=== PATIENT | female | born 1960 | race Caucasian/White ===

== ENCOUNTER 2018-11-18 08:26 | Outpatient (CLI) | payer OTHER ==
[2018-11-18] MEDS ORDERED: Iopamidol 370 76% 100 ML VIAL ONE (09:00)
--- NOTE | 2018-11-18 09:43 | CT ---
CT ABDOMEN AND PELVIS WITH AND WITHOUT IV CONTRAST: HISTORY: Microscopic hematuria. FINDINGS: Each renal collecting system, ureter, and the urinary bladder are decompressed. At th inferior pole of the right kidney, at an area of scarring, a 0.3 cm calculus is present within a nondilated calyx. No stones are apparent on the left. There is focal cortical thinning and retraction at the posterio r aspect of the inferior pole right kidney. 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 No filling defects are apparent within the urinary system on the delayed images. Tiny cysts associat ed with the cortex of each kidney. Calcification of the arterial structures with mild fusiform ectas ia of the lower abdominal aorta up to 2.0 cm distally. Degenerative changes of the lumbar spine. IMPRESSION: 1. Nonobstructing 3 mm right inferior pole renal calculus. 2. Prominent parenchymal scarring at the inferior pole of the right kidney. 3. Tiny bilateral renal cysts. 4. Atherosclerosis. POS: [facility]
== END 2018-11-18 08:27 | disposition home or self-care (01) ==
LOC: SCSCT 08:26
PROVIDERS: ATTEND Urology
DX: R31.29 Other microscopic hematuria (principal); N20.0 Calculus of kidney; N28.1 Cyst of kidney, acquired; I70.0 Atherosclerosis of aorta; N28.89 Other specified disorders of kidney and ureter
CPT/HCPCS: 74178

== ENCOUNTER 2019-03-10 08:41 | Outpatient (CLI) | payer OTHER ==
--- NOTE | 2019-03-10 09:30 | BD ---
DEXA BONE DENSITOMETRY: (Dual energy x-ray absorptiometry) DATE: 03/10/2019 HISTORY: 58-year old white female for age-related, post-menopausal, osteoporosis screening. weight: 125 lbs height: 63 in. Age of menopause: 48 COMPARISON: None available. FINDINGS: The bone mineral density (BMD) is given in grams per square centimeter (g/cm2): LUMBAR SPINE: BMD (g/cm^2) T score Z score L1: 0.726 -2.4 -1.1 L2: 0.824 -1.9 -0.4 L3: 0.850 -2.1 -0.7 L4: 0.907 -1.4 0.1 Total: 0.837 -1.9 -0.5 HIP: BMD (g/cm^2) T score Z score Femoral neck: 0.598 -2.3 -1.0 Total: 0.864 -0.6 0.3 FRAX WHO fracture risk assessment tool: 10 year fracture risk* Major osteoporotic fracture: 10 % Hip fracture: 2.7 % Reported risk factors: [place] (), neck BMD = 0.598 (g/cm^2), BMI = 22.1, and Smoking. *Fracture probability is calculated for an untreated patient. Fracture probability may be lower if th e patient has received treatment. IMPRESSION: 1.) The mean bone mineral density of the lumbar spine is osteopenic. Fracture risk is increased. 2) The bone mineral density of the femoral neck is osteopenic. Fracture risk is increased.
== END 2019-03-10 08:42 | disposition home or self-care (01) ==
LOC: BICMAMMO 08:41
PROVIDERS: ATTEND Advanced Practice Midwife
DX: Z13.820 Encounter for screening for osteoporosis (principal); M85.88 Other specified disorders of bone density and structure, other site
CPT/HCPCS: 77080

== ENCOUNTER 2020-03-29 15:09 | Outpatient (CLI) | payer OTHER ==
--- NOTE | 2020-03-29 15:25 | RAD ---
Cervical spine 4 views HISTORY: Neck pain. Injury. FINDINGS: There is gentle reversal of the normal lordotic curvature. Disc space narrowing most pronou nced at the C5-6 level. Osteophytosis throughout the vertebral bodies and facets. Cervicothoracic junction is intact. No acute fracture or dislocation. IMPRESSION : No acute osseous abnormalities are demonstrated. Osteoarthritic changes.
== END 2020-03-29 15:10 | disposition home or self-care (01) ==
LOC: BICRAD 15:09
PROVIDERS: ATTEND Family Medicine
DX: M54.2 Cervicalgia (principal); M47.812 Spondylosis without myelopathy or radiculopathy, cervical region
CPT/HCPCS: 72040

== ENCOUNTER 2021-01-24 08:19 | Outpatient (CLI) | payer OTHER | END 2021-01-24 08:20 | disposition home or self-care (01) | LOC: BICRAD 08:19 | PROVIDERS: ATTEND Family Medicine | DX: R27.0 Ataxia, unspecified (principal) | CPT/HCPCS: 71046 ==

== ENCOUNTER 2025-06-09 09:35 | Outpatient (CLI) | payer MEDICARE | END 2025-06-09 09:36 | disposition home or self-care (01) | LOC: BICMAMMO 09:35 | PROVIDERS: ATTEND Family Medicine | DX: Z12.31 Encounter for screening mammogram for malignant neoplasm of breast (principal); Z98.82 Breast implant status | CPT/HCPCS: 77063; 77067 ==